=== PATIENT | female | born 1955 | race Caucasian/White ===

== ENCOUNTER 2020-05-04 10:56 | Outpatient (CLI) | payer OTHER | END 2020-05-04 10:57 | disposition home or self-care (01) | LOC: DI.S 10:56 | PROVIDERS: ATTEND Family Medicine | DX: Z53.9 Procedure and treatment not carried out, unspecified reason (principal) ==

== ENCOUNTER 2020-05-11 10:27 | Outpatient (CLI) | payer OTHER ==
--- NOTE | 2020-05-11 11:08 | XRAY Report ---
PROCEDURE: Foot 3 View BILAT INDICATIONS: FOOT PX LEG PX TECHNIQUE: 3 views of the foot were acquired. COMPARISON: X-ray ankle 05/11/2020, x-ray foot 07/03/2015 FINDINGS: Bones: No fractures or dislocations. No suspicious bony lesions. Minimal scattered IP degenerative change bilaterally. Soft tissues: No tibiotalar joint effusion. Achilles tendon appears normal. IMPRESSION: Minimal scattered IP degenerative changes bilaterally. No visualized acute fracture or dislocation. H owever, occult injury cannot be excluded. Recommend short interval imaging follow-up in 7-10 days as clinically indicated for additional evaluation. Reviewed by: Esha Tellez MD on 05/11/2020 11:07 AM PDT Approved by: Esha Tellez MD on 05/11/2020 11:07 AM PDT Station ID: [id number]
--- NOTE | 2020-05-11 11:09 | XRAY Report ---
PROCEDURE: Ankle 3 View BILAT INDICATIONS: FOT PX LEG PX TECHNIQUE: 3 views of the ankle were acquired. COMPARISON: X-ray foot 05/11/2020, 07/03/2015 FINDINGS: Bones: No fractures or dislocations. Ankle mortise is normally aligned. No suspicious bony lesions . Soft tissues: No tibiotalar joint effusion. Achilles tendon appears normal. IMPRESSION: No visualized acute fracture or dislocation. However, occult injury cannot be excluded. Recommend short interval imaging follow-up in 7-10 days as clinically indicated for additional evalua tion. Reviewed by: Esha Tellez MD on 05/11/2020 11:07 AM PDT Approved by: Esha Tellez MD on 05/11/2020 11:07 AM PDT Station ID: [id number]
== END 2020-05-11 10:28 | disposition home or self-care (01) ==
LOC: DI.S 10:27
PROVIDERS: ATTEND Family Medicine
DX: M19.072 Primary osteoarthritis, left ankle and foot (principal); M19.071 Primary osteoarthritis, right ankle and foot

== ENCOUNTER 2022-12-29 15:43 | Outpatient (CLI) | payer MEDICARE, OTHER ==
--- NOTE | 2022-12-30 10:46 | Mammography Report ---
BILATERAL DIGITAL SCREENING MAMMOGRAM 3D/2D WITH EXAGGERATED CC: 12/29/2022 CLINICAL: Baseline exam. Routine screening. No prior exams were available for comparison. There are scattered areas of fibroglandular density in both breasts (category b / 25%-50% glandular t issue). There is a cluster of oval focal asymmetries with an obscured margin in the right breast at 11 o'cloc k anterior depth. No other significant masses, calcifications, or other findings are seen in either breast. IMPRESSION: INCOMPLETE: NEEDS ADDITIONAL IMAGING EVALUATION The cluster of oval focal asymmetries in the right breast resembles clustered cysts and is indetermin ate. Additional views with possible ultrasound are recommended. Based on the Tyrer Cuzick model (a risk assessment model) the patients lifetime risk is 5.4% and her 10 year risk is 2.7%. According to the ACR, ACS, and NCCN guidelines, an annual breast MRI exam irina g with mammogram is recommended if the patients lifetime risk is 20% or greater. This exam was interpreted at Station ID: [id number]. NOTE: For mammograms, a report in lay terms will be sent to the patient. Approximately 15% of breast malignancies will not be visualized mammographically. In the management of a palpable breast mass, a negative mammogram must not discourage biopsy of a clinically suspicious lesion. Electronically Signed By: Niko gil/milvia:12/29/2022 12:08:49 ACR BI-RADS Category 0: Incomplete 3340F PARENCHYMAL PATTERN: (A) - The breast(s) demonstrate(s) scattered fibroglandular densities. BI-RADS CATEGORY: (0) - 0 Mammo and [place] [id number] Immediate follow-up LATERALITY: (R)
== END 2022-12-29 23:59 | disposition home or self-care (01) ==
LOC: DI.S 15:43
DX: Z12.31 Encounter for screening mammogram for malignant neoplasm of breast (principal); R92.8 Other abnormal and inconclusive findings on diagnostic imaging of breast

== ENCOUNTER 2023-01-19 10:49 | Outpatient (CLI) | payer MEDICARE, OTHER ==
--- NOTE | 2023-01-20 09:12 | Mammography Report ---
UNILATERAL RIGHT DIGITAL DIAGNOSTIC MAMMOGRAM 3D/2D WITH SPOT COMPRESSION: 01/19/2023 CLINICAL: Patient returns today to evaluate a focal asymmetry in the right breast. Comparison is made to exam dated: 12/29/2022 mammogram - [facility]. There are scattered areas of fibroglandular density in the right breast (category b / 25%-50% glandul ar tissue). There are multiple oval focal asymmetries with an obscured margin in the right breast superior latera l quadrant anterior depth. These are seen in additional views. These are less prominent. No other significant masses or calcifications are seen in the breast. IMPRESSION: INCOMPLETE: NEEDS ADDITIONAL IMAGING EVALUATION The multiple oval focal asymmetries in the right breast resemble clustered cysts or fibroglandular ti ssue and are indeterminate. An ultrasound is recommended. Based on the Tyrer Cuzick model (a risk assessment model) the patients lifetime risk is 5.4% and her 10 year risk is 2.7%. According to the ACR, ACS, and NCCN guidelines, an annual breast MRI exam irina g with mammogram is recommended if the patients lifetime risk is 20% or greater. This exam was interpreted at Station ID: [id number]. NOTE: For mammograms, a report in lay terms will be sent to the patient. Approximately 15% of breast malignancies will not be visualized mammographically. In the management of a palpable breast mass, a negative mammogram must not discourage biopsy of a clinically suspicious lesion. Electronically Signed By: Satish stanley/penrad:01/19/2023 12:49:20 ACR BI-RADS Category 0: Incomplete 3340F PARENCHYMAL PATTERN: (A) - The breast(s) demonstrate(s) scattered fibroglandular densities. BI-RADS CATEGORY: (0) - 0 Ultrasound [id number] Immediate follow-up LATERALITY: (R)
--- NOTE | 2023-01-20 09:12 | Ultrasound Report ---
LIMITED ULTRASOUND OF RIGHT BREAST: 01/19/2023 CLINICAL: Patient returns today to evaluate a focal asymmetry in the right breast. Comparison is made to exams dated: 01/19/2023 mammogram and 12/29/2022 mammogram - [facility]. Color flow ultrasound of the right breast 8-11 o'clock region was performed. Mckinley scale images of th e real-time examination were reviewed. There is a benign 0.4 cm x 0.6 cm x 0.3 cm oval cyst with a smooth internal wall in the right breast at 9 o'clock anterior depth 3 cm from the nipple. This oval cyst is anechoic with posterior acoustic enhancement. This correlates with mammography findings. IMPRESSION: BENIGN There is no sonographic evidence of malignancy. The 0.4 cm x 0.6 cm x 0.3 cm oval cyst in the right breast is consistent with a simple cyst and is be nign. No sonographic correlate is seen for additional asymmetries seen on mammography, consistent with norm al dense fibroglandular tissue. Return to annual mammogram screening schedule is recommended. This exam was interpreted at Station ID: [id number]. Electronically Signed By: Satish Stein M.D. ar/:01/19/2023 12:59:13 Ultrasound BI-RADS: 2 Benign BI-RADS CATEGORY: (2) - 2 Mammogram [id number] return to screening LATERALITY: (B)
== END 2023-01-19 10:50 | disposition home or self-care (01) ==
LOC: DI 10:49
PROVIDERS: ATTEND Nurse Practitioner Family
DX: N60.01 Solitary cyst of right breast (principal)

== ENCOUNTER 2023-08-11 14:31 | Outpatient (CLI) | payer MEDICARE, OTHER ==
--- NOTE | 2023-08-11 17:09 | XRAY Report ---
PROCEDURE: Lumbar Spine 2 View INDICATIONS: LEFT SIDE SCIATICA TECHNIQUE: 3 views of the lumbar spine were acquired. COMPARISON: None. FINDINGS: Bones: 5 [id number] vertebrae are present. There is trace anterolisthesis of L4 on L5. Moderat e to severe disc and foraminal narrowing are present at L5-S1 with scattered areas of mild to moderat e disc space narrowing throughout the remainder of the lumbar spine. Anterior osteophytes are present L1 and L2. No vertebral body compression fractures. No suspicious bony lesions. Soft tissues: Overlying bowel gas pattern is normal. No suspicious soft tissue calcifications. IMPRESSION: Degenerative changes most severe at L5-S1. Reviewed by: Esha Tellez MD on 08/11/2023 5:08 PM PDT Approved by: Esha Tellez MD on 08/11/2023 5:08 PM PDT Station ID: [id number]
--- NOTE | 2023-08-11 17:10 | XRAY Report ---
PROCEDURE: Hip w/Pelvis 2-3V LT INDICATIONS: LEFT SIDE SCIATICA TECHNIQUE: AP pelvis with lateral view(s) of the left hip(s). COMPARISON: None. FINDINGS: Bones: No fractures or dislocations. No suspicious bony lesions. Moderate to severe bilateral deg enerative hip joint space narrowing. No erosions. Soft tissues: No suspicious soft tissue calcifications or masses. IMPRESSION: Bilateral hip arthritic change. Reviewed by: Esha Tellez MD on 08/11/2023 5:08 PM PDT Approved by: Esha Tellez MD on 08/11/2023 5:08 PM PDT Station ID: [id number]
== END 2023-08-11 14:32 | disposition home or self-care (01) ==
LOC: DI.S 14:31
PROVIDERS: ATTEND Nurse Practitioner Family
DX: M54.32 Sciatica, left side (principal); M47.817 Spondylosis without myelopathy or radiculopathy, lumbosacral region; M16.0 Bilateral primary osteoarthritis of hip

== ENCOUNTER 2024-03-23 08:15 | Outpatient (CLI) | payer MEDICARE, OTHER | END 2024-03-23 21:53 | disposition critical access hospital (66) | LOC: EMS 08:15 | DX: I10 Essential (primary) hypertension (principal); R42 Dizziness and giddiness; R20.0 Anesthesia of skin | CPT/HCPCS: A0425; A0429 ==

== ENCOUNTER 2024-03-23 08:43 | Emergency (ER) | payer MEDICARE, OTHER ==
[2024-03-23] MEDS: MECLIZINE 12.5 MG TABLET PO STA (09:17)
[2024-03-23] MEDS: SODIUM CHLORIDE 0.9% 1,000 ML IV STA (09:17)
[2024-03-23 09:20] LABS: BASOPHILS # (AUTO) 0.1 10^3/uL (0.0-0.1); BASOPHILS % (AUTO) 0.6 %; EOSINOPHILS # (AUTO) 0.1 10^3/uL (0.0-0.7); EOSINOPHILS % (AUTO) 1.4 %; HGB - HEMOGLOBIN 13.8 g/dL (12.0-16.0); LYMPHOCYTES # (AUTO) 1.7 10^3/uL (1.5-3.5); LYMPHOCYTES % (AUTO) 19.8 %; MEAN CORPUSCULAR HEMOGLOBIN 29.6 pg (27.0-31.0); MEAN CORPUSCULAR HGB CONC 32.1 g/dL (32.0-36.0); MEAN CORPUSCULAR VOLUME 92.3 fL (81.0-99.0); MONOCYTES # (AUTO) 0.5 10^3/uL (0.0-1.0); MONOCYTES % (AUTO) 5.8 %; NEUTROPHILS # (AUTO) 6.3 10^3/uL (1.5-6.6); NEUTROPHILS % (AUTO) 72.2 %; PLT - PLATELET COUNT 276 10^3/uL (130-450); RED BLOOD COUNT 4.66 10^6/uL (4.20-5.40); RED CELL DISTRIBUTION WIDTH 12.5 % (12.0-15.0); WHITE BLOOD COUNT 8.7 x10^3/uL (4.8-10.8)
[2024-03-23 09:35] LABS: ALBUMIN 4.4 g/dL (3.2-5.5); ALBUMIN/GLOBULIN RATIO 1.4 (1.0-2.2); BILIRUBIN,TOTAL 0.4 mg/dL (0.2-1.0); CALCIUM 9.7 mg/dL (8.5-10.3); CREATININE 0.8 mg/dL (0.6-1.3); POTASSIUM 4.1 mmol/L (3.5-4.5); TOTAL PROTEIN 7.5 g/dL (6.4-8.9)
--- NOTE | 2024-03-23 09:42 | ED Physician Documentation ---
History of Present Illness - Stated complaint Stated Complaint: DIZZY/L SIDE NUMBNESS - Chief complaint Chief Complaint: Neuro - History obtained from History obtained from: Patient - Additonal information Additional information: The patient comes to the emergency department chief complaint of left-sided numbness and tingling and ataxia this morning that started around 730. Patient states she felt fine when she woke up and was preparing to go to her water aerobics class when she suddenly began to feel "dizzy". She states it did not really feel like a sense of movement, or a sense of lightheadedness, but rather that she was just having a hard time holding herself up. She states it seemed to be focused more on the left side. She also had tingling/numbness in her left face, arm, and leg. She called EMS and was still having a difficult time when they picked her up. However, she states that about senior living to the hospital, she began to feel better. The patient denies any actual loss of movement. The medics state they could not appreciate any deficits. They did get a blood pressure of 230 over upper 90s when they arrived to pick the patient up, however. The patient has a history of a diagnosis of hypertension but has been resistant to taking medication for it. She has been monitoring her blood pressures at home, which usually run in the 140s to 160s systolic. She states the last time she saw her primary provider, she was finally convinced that she needed to be on meds and now that this has happened, she states she is going to start taking blood pressure medication. The patient denies any recent illnesses. She was feeling perfectly fine when she woke up this morning. No visual changes. No difficulty speaking or swallowing. No facial droop. PD PAST MEDICAL HISTORY - Past Medical History Past Medical History: Yes Cardiovascular: Hypertension - Past Surgical History Past Surgical History: Yes Ortho: Knee replacement - Present Medications Home Medications: Ambulatory Orders Medication Instructions Recorded Confirmed Aspirin Chewable [[place] 81 mg PO DAILY #30 tablet 03/23/24 Aspirin] Metoprolol Tartrate [Lopressor] 50 mg PO BID #60 tablet 03/23/24 - Allergies Allergies/Adverse Reactions: Allergies Allergy/AdvReac Type Severity Reaction Status Date / Time No Known Drug Allergies Allergy Verified 03/23/24 08:57 - Social History Does the pt smoke?: No Smoking Status: Never smoker Does the pt drink ETOH?: No Does the pt have substance abuse?: No PD ED PE NORMAL - Vitals Vital signs reviewed: Yes - General General: Alert and oriented X 3, No acute distress, Well developed/nourished - HEENT HEENT: Atraumatic, PERRL, EOMI, Moist mucous membranes - Neck Neck: Supple, no meningeal sign - Cardiac Cardiac: RRR, No murmur - Respiratory Respiratory: No respiratory distress, Clear bilaterally - Abdomen Abdomen: Soft, Non tender, Non distended - Derm Derm: Normal color, Warm and dry, No rash - Extremities Extremities: No deformity, No edema - Neuro Neuro: Alert and oriented X 3, 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 Patient states sensation is equal on exam but the left side just feels "funny".) - Psych Psych: Normal mood, Normal affect Results - Vitals Vitals: Oxygen O2 Source Room air - EKG (time done) 0902 EKG releavant findings:: EKG personally interpreted by author of this note. Relevant findings are: Rate: Rate (enter#) (94) Rhythm: NSR [place]: Normal Intervals: Normal NM QRS: LVH Ischemia: Normal ST segments Compare to prior EKG: Old EKG unavailable Computer interpretation: Agree with computer - Labs Labs: Laboratory Tests 03/23/24 03/23/24 09:14 09:14 WBC 8.7 RBC 4.66 Hgb 13.8 Hct 43.0 MCV 92.3 MCH 29.6 MCHC 32.1 RDW 12.5 Plt Count 276 MPV 9.0 Neut # (Auto) 6.3 Lymph # (Auto) 1.7 [place] # (Auto) 0.5 Eos # (Auto) 0.1 Baso # (Auto) 0.1 Absolute Nucleated RBC 0.00 Nucleated RBC % 0.0 Sodium 139 Potassium 4.1 Chloride 104 Carbon Dioxide 28 Anion Gap 7.0 BUN 20 Creatinine 0.8 Estimated GFR (MDRD) 72 L Glucose 94 Calcium 9.7 Total Bilirubin 0.4 AST 15 ALT 17 Alkaline Phosphatase 69 Total Protein 7.5 Albumin 4.4 Globulin 3.1 Albumin/Globulin Ratio 1.4 Lipase 15 - Rads (name of study) CT head Relevant Findings:: Final report received, See rad report (Negative) CTA head and neck Relevant Findings:: Final report received, See rad report (Negative) MRI brain Relevant Findings:: Final report received, See rad report (Negative) PD Medical Decision Making - ED course Complexity details: reviewed results, re-evaluated patient, considered differential, d/w patient, d/w family ED course: The patient was worked up with laboratory studies and EKG both of which were unremarkable. She was sent for CT of the head without contrast as well as CT angios of the head and neck, both of which were unremarkable. The patient was then sent for a noncontrast MRI of the brain which was also negative. At this point the patient has ambulated to the bathroom numerous times during her stay here and denied any dizziness, lightheadedness, or any other neurologic symptoms patient stable for discharge home. I have advised her to follow-up with her primary care physicianWith his dementia. We have discussed the usual indications for return. Departure - Departure Disposition: 01 Home, Self Care Clinical Impression: Paresthesia, Uncontrolled hypertension Condition: Stable Instructions: ED Hypertension Conf Out Of Control, ED Paraesthesias Prescriptions: Metoprolol Tartrate [Lopressor] 50 mg PO BID #60 tablet Aspirin Chewable [St [place] Aspirin] 81 mg PO DAILY #30 tablet Comments: Your CT scans and MRI showed no evidence of stroke which is great news. Your blood pressures have been persistently high and unfortunately, this does put you at high risk for arterial disease and a stroke in the future. We have treated you with blood pressure medicine here in the ER today and I suspect that your very high blood pressure this morning was what set off your symptoms. As such, it is important that you start blood pressure medicine while you are waiting to see your primary. I have sent a prescription for this and a daily aspirin to the [facility] in [place]. Please pick this up and start your medicine tomorrow. Please call to make the next available appointment with your primary care provider to determine a good long-term plan for your blood pressure. If you develop more severe strokelike symptoms, please return to the emergency department immediately. Forms: PCP List Discharge Date/Time: 03/23/24 13:22
[2024-03-23] MEDS ORDERED: iohexoL-300 100 ML VIAL ONE (10:01)
--- NOTE | 2024-03-23 10:54 | CT Report ---
PROCEDURE: Head WO INDICATIONS: L side numb/tingling, ataxia TECHNIQUE: Noncontrast 4.5 mm thick angled axial sections acquired from the foramen magnum to the vertex. For r adiation dose reduction, the following was used: automated exposure control, adjustment of mA and/or kV according to patient size. COMPARISON: None. FINDINGS: Image quality: Excellent. CSF spaces: Basal cisterns are patent. No extra-axial fluid collections. Ventricles are normal in size and shape. Brain: No midline shift. No intracranial masses or hemorrhage. Mckinley-white matter interface is norm al. Skull and face: Calvarium and visualized facial bones are intact, without suspicious lesions. Sinuses: Visualized sinuses and mastoids are clear. IMPRESSION: No acute intracranial pathology. Reviewed by: Obdulio Gill MD on 03/23/2024 10:53 AM PDT Approved by: Obdulio Gill MD on 03/23/2024 10:53 AM PDT Station ID: [id number]
--- NOTE | 2024-03-23 10:59 | CT Report ---
PROCEDURE: Angio Head/Neck INDICATIONS: L side numb/tingling, ataxia TECHNIQUE: After the administration of intravenous contrast, 1 mm thick sections acquired from the aortic arch t hrough the [place]. 3-dimensional dwkbgdn-cqqidjfqy-ikdgabmjqi (MIP) and/or volume renderin g reformats were acquired of the central intracranial vasculature and neck separately. For radiation dose reduction, the following was used: automated exposure control, adjustment of mA and/or kV acco rding to patient size. CONTRAST: Omni 300 80ml COMPARISON: CT head from the same date. FINDINGS: Image quality: Diagnostic. HEAD CT: CSF Spaces: Basal cisterns are patent. No extra-axial fluid collections. Ventricles are normal in size and shape. Brain: No significant abnormality is seen for scanning technique. Skull and face: Calvarium and visualized facial bones appear intact, without suspicious lesions. Sinuses: Visualized sinuses and mastoids are clear. HEAD CT ANGIOGRAPHY: Anterior circulation: Bilateral cavernous carotid diffuse atherosclerotic calcifications with moderat e left cavernous carotid stenotic disease and mild right cavernous carotid stenotic disease. The flow within the paired anterior cerebral arteries is normal and symmetric. The flow within the middle ce rebral arteries is normal and symmetric. The anterior communicating artery is seen. No aneurysms ar e seen. Posterior circulation: Visualized portions of the vertebral arteries demonstrate normal caliber, and join to form a normal appearing basilar artery. Flow within the posterior cerebral arteries is norm al and symmetric. No aneurysms are seen. NECK CT ANGIOGRAPHY: Carotid system: The great vessels demonstrate a conventional anatomy as they arise from the aortic a rch. The origins of the common carotid arteries appear patent. The common carotid arteries demonstr ate normal caliber and courses. The bifurcation regions are both widely patent. Mild, less than 50% proximal left internal carotid artery stenosis. No right carotid stenosis identified. Posterior circu lation: The origins of the vertebral arteries both appear widely patent. The more superior extracra nial portions of both vertebral arteries also demonstrate normal courses and calibers. They join to form a normal appearing basilar artery. Soft tissues: Visualized neck soft tissues demonstrate no suspicious abnormalities. Bones: No suspicious bony lesions. Visualized cervical spine appears normally aligned. IMPRESSION: 1. 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 Otherwis e unremarkable CTA head. No focal filling defects. No aneurysms. No vascular cutoffs. 2. Mild, less than 50% proximal left internal carotid artery stenosis The estimate of stenosis included in the report of the imaging study was calculated using the NASCET method Reviewed by: Obdulio Gill MD on 03/23/2024 10:57 AM PDT Approved by: Obdulio Gill MD on 03/23/2024 10:57 AM PDT Station ID: [id number]
[2024-03-23] MEDS: iohexoL-300 100 ML VIAL IVP ONE (12:19)
[2024-03-23] MEDS: METOPROLOL TARTRATE 50 MG TABLET PO STA (12:40)
--- NOTE | 2024-03-23 12:45 | MRI Report ---
PROCEDURE: Brain WO INDICATIONS: numb L side, truncal ataxia this morning TECHNIQUE: Noncontrast axial T1 spin echo, axial T2 fast spin echo, sagittal and axial FLAIR, coronal T2 fast sp in echo, axial gradient echo, axial diffusion and ADC through the brain. COMPARISON: CT head, CTA head 03/23/2024 FINDINGS: Image quality: Excellent. CSF Spaces: Basal cisterns are patent. No extra-axial fluid collections. Ventricles are normal in size and shape. Brain: No intracranial masses or hemorrhage. Mckinley/white matter interface is normal. Brainstem appe ars normal. Diffusion-weighted images demonstrate no acute ischemic insult. No chronic ischemic ins ults. Normal intravascular flow voids are present. Skull and face: Calvarium has normal marrow signal. Orbits appear normal. Sinuses: Sinuses are clear. Minimal bilateral mastoid air cell fluid. IMPRESSION: 1. No acute intracranial process. No acute ischemia. Reviewed by: Esha Tellez MD on 03/23/2024 12:44 PM PDT Approved by: Esha Tellez MD on 03/23/2024 12:44 PM PDT Station ID: [id number]
[2024-03-23 12:48] VITALS: BP 168/84
[2024-03-23] MEDS: lisinopriL 20 MG TABLET PO STA (12:55)
[2024-03-23 13:09] VITALS: O2SAT 98
== END 2024-03-23 13:22 | disposition home or self-care (01) ==
LOC: EDUNIT# → ED 08:43
DX: R20.2 Paresthesia of skin (principal); I10 Essential (primary) hypertension; Z79.82 Long term (current) use of aspirin; Z79.899 Other long term (current) drug therapy
CPT/HCPCS: 36415; 70450; 70496; 70498; 70551; 80053; 83690; 85025; 93005; 99284; A9270; Q9967

== ENCOUNTER 2024-07-21 14:59 | Outpatient (CLI) | payer MEDICARE, OTHER ==
--- NOTE | 2024-07-21 15:32 | XRAY Report ---
PROCEDURE: Chest 2V INDICATIONS: ASTHMA TECHNIQUE: 2 views of the chest were acquired. COMPARISON: None. FINDINGS: Surgical changes and devices: None. Lungs and pleura: No dense consolidation or pleural effusion Mediastinum: Normal heart size Bones and chest wall: Degenerative changes IMPRESSION: No acute radiographic abnormality. Reviewed by: David Lomeli MD on 07/21/2024 3:31 PM PDT Approved by: David Lomeli MD on 07/21/2024 3:31 PM PDT Station ID: [id number]
== END 2024-07-21 15:00 | disposition home or self-care (01) ==
LOC: DI.S 14:59
DX: J45.909 Unspecified asthma, uncomplicated (principal)

== ENCOUNTER 2024-12-21 09:52 | Inpatient (IN) ==
[2024-12-21 10:39] LABS: BASOPHILS # (AUTO) 0.1 10^3/uL (0.0-0.1); BASOPHILS % (AUTO) 0.4 %; EOSINOPHILS # (AUTO) 0.1 10^3/uL (0.0-0.7); EOSINOPHILS % (AUTO) 0.5 %; HCT - HEMATOCRIT 44.5 % (37.0-47.0); HGB - HEMOGLOBIN 14.4 g/dL (12.0-16.0); LYMPHOCYTES # (AUTO) 1.6 10^3/uL (1.5-3.5); LYMPHOCYTES % (AUTO) 8.8 %; MEAN CORPUSCULAR HEMOGLOBIN 29.3 pg (27.0-31.0); MEAN CORPUSCULAR HGB CONC 32.4 g/dL (32.0-36.0); MEAN CORPUSCULAR VOLUME 90.6 fL (81.0-99.0); MEAN PLATELET VOLUME 8.3 fL (7.9-10.8); MONOCYTES # (AUTO) 0.9 10^3/uL (0.0-1.0); MONOCYTES % (AUTO) 5.1 %; NEUTROPHILS # (AUTO) 15.5 10^3/uL (1.5-6.6); NEUTROPHILS % (AUTO) 83.5 %; PLT - PLATELET COUNT 545 10^3/uL (130-450); RED BLOOD COUNT 4.91 10^6/uL (4.20-5.40); RED CELL DISTRIBUTION WIDTH 13.5 % (12.0-15.0); WHITE BLOOD COUNT 18.6 x10^3/uL (4.8-10.8)
[2024-12-21 10:56] LABS: ALBUMIN/GLOBULIN RATIO 1.1 (1.0-2.2); ALKALINE PHOSPHATASE 78 IU/L (42-121); ALT ALANINE AMINOTRANSFERASE 12 IU/L (10-60); AST ASPARTATE AMINOTRANSFERASE 9 IU/L (10-42); BILIRUBIN,TOTAL 0.4 mg/dL (0.2-1.0); BUN - BLOOD UREA NITROGEN 21 mg/dL (6-20); CALCIUM 10.1 mg/dL (8.5-10.3); CARBON DIOXIDE - CO2 29 mmol/L (21-32); CHLORIDE 96 mmol/L (101-111); CREATININE 1.7 mg/dL (0.6-1.3); GFR - MDRD 30 (>89); GLUCOSE 139 mg/dL (74-104); POTASSIUM 3.6 mmol/L (3.5-4.5); SODIUM 137 mmol/L (135-145); TOTAL PROTEIN 7.8 g/dL (6.4-8.9)
[2024-12-21 11:01] LABS: LIPASE < 10 U/L (11-82)
--- NOTE | 2024-12-21 11:29 | ED Physician Documentation ---
History of Present Illness Stated complaint Stated Complaint: NAUSEA Chief complaint Chief Complaint: Abd Pain History obtained from History obtained from: Patient History of Present Illness Timing: Prior to arrival Additonal information Additional information: Patient is a 69-year-old female presenting to the emergency department with symptoms of lower abdominal pain going on x 1 week. Patient has history of diverticulosis. When she developed some left lower abdominal pain and diarrhea she assumed her symptoms were secondary to diverticulitis. She saw her PCP on Wednesday who instructed her to follow a clear liquid diet. On patient was started on Augmentin. She took 2 doses of the medication but was unable to keep it down for repetitive nausea and vomiting that started yesterday. She denies any blood in her emesis or in her stool. She has no fevers or chills. She has decreased urination secondary to unable to eat or drink. No history of abdominal surgeries. She has persistent pain to her left lower abdomen. No history of diverticulitis. Meds/Allgy Home Medications Ambulatory Orders Medication Instructions Recorded Confirmed aspirin 81 mg chewable tablet 81 mg PO DAILY #30 tabs 03/23/24 11/02/24 losartan 25 mg tablet 25 mg PO QDAY 10/16/24 11/02/24 metoprolol tartrate 50 mg tablet 50 mg PO QDAY 10/16/24 11/02/24 diclofenac sodium 50 mg 50 mg PO TID PRN pain #30 tabs 11/02/24 11/02/24 tablet,delayed release trazodone 100 mg tablet 50 - 100 mg PO .qhs 11/02/24 11/02/24 Allergies Allergies Allergy/AdvReac Type Severity Reaction Status Date / Time No Known Drug Allergies Allergy Verified 10/16/24 07:40 [facility] Medical History Medical History HTN (hypertension) Osteoarthritis of left knee Social History Social History (Updated 12/21/24 @ 15:12 by Khadra Iglesias MD) Smoking Status: Never smoker Living Condition: With spouse/s.o. Support Person: Yes Relationship: Spouse Level: Independent Do you feel safe in your home environment?: Yes Suffered physical, verbal, emotional, or financial abuse?: No History of Abuse: No Occupation: science teacher, [employer] cook Retired: Yes POLST Patient has POLST: No Exam Constitutional normal general appearance HENMT normocephalic and head/scalp atraumatic Eyes PERRL and EOMs intact bilaterally Neck/C-Spine visual inspection normal Lymph no lymphadenopathy noted Chest inspection of chest normal Respiratory breath sounds equal bilaterally Cardiovascular TAchycardic on arrival Extremities normal to inspection Skin skin color normal, no rash and no lesions Results Vitals Vitals: Vital Signs - 24 hr 12/21/24 10:02 12/21/24 10:34 12/21/24 11:04 Temperature 36.1 C L Temperature Source Temporal Artery Scan Pulse Rate 130 H 109 H 110 H Respiratory Rate 20 18 18 Blood Pressure 181/72 H 156/69 H 154/68 H O2 Saturation 97 95 99 O2 Source Room air Room air Room air If not protocol: Oxygen Flow, liters/minute Pain Intensity 0 1 12/21/24 11:30 12/21/24 12:06 12/21/24 12:37 Temperature Temperature Source Pulse Rate 106 H 103 H 116 H Respiratory Rate 18 19 16 Blood Pressure 152/76 H 156/65 H 161/78 H O2 Saturation 97 95 97 O2 Source Room air Room air Room air If not protocol: Oxygen Flow, liters/minute Pain Intensity 12/21/24 13:46 12/21/24 14:46 12/21/24 15:10 Temperature Temperature Source Pulse Rate 100 102 H Respiratory Rate 13 18 Blood Pressure 166/75 H 145/111 H O2 Saturation 98 97 95 O2 Source Room air Room air If not protocol: Oxygen Flow, liters/minute Pain Intensity 12/21/24 16:15 Temperature Temperature Source Pulse Rate 101 H Respiratory Rate 18 Blood Pressure 182/65 H O2 Saturation 99 O2 Source Nasal cannula If not protocol: Oxygen Flow, liters/minute 2 Pain Intensity Oxygen O2 Source Nasal cannula Labs Labs: Laboratory Tests 12/21/24 12/21/24 10:25 13:38 WBC 18.6 H RBC 4.91 Hgb 14.4 Hct 44.5 MCV 90.6 MCH 29.3 MCHC 32.4 RDW 13.5 Plt Count 545 H MPV 8.3 Neut # (Auto) 15.5 H Lymph # (Auto) 1.6 [place] # (Auto) 0.9 Eos # (Auto) 0.1 Baso # (Auto) 0.1 Absolute Nucleated RBC 0.00 Nucleated RBC % 0.0 Sodium 137 Potassium 3.6 Chloride 96 L Carbon Dioxide 29 Anion Gap 12.0 BUN 21 H Creatinine 1.7 H Estimated GFR (MDRD) 30 L Glucose 139 H Calcium 10.1 Total Bilirubin 0.4 AST 9 L ALT 12 Alkaline Phosphatase 78 Total Protein 7.8 Albumin 4.0 Globulin 3.8 Albumin/Globulin Ratio 1.1 Lipase < 10 L Urine Color YELLOW Urine Clarity CLEAR Urine pH 6.0 Ur Specific [place] 1.010 Urine Protein NEGATIVE Urine Glucose (UA) NEGATIVE Urine Ketones TRACE Urine Occult Blood NEGATIVE Urine Nitrite NEGATIVE Urine Bilirubin NEGATIVE Urine Urobilinogen 0.2 (NORMAL) Ur Leukocyte Esterase NEGATIVE Ur Microscopic Review NOT INDICATED Urine Culture Comments NOT INDICATED PD Medical Decision Making ED course Complexity details: reviewed old records and reviewed results ED course: Patient is a 69-year-old female presenting to the emergency department with lower abdominal pain symptoms have been going on for about 1 week she has had diarrhea and developed nausea and vomiting yesterday. She took 2 doses of Augmentin but was unable to keep them down yesterday. No fevers persistent lower abdominal pain with persistent nausea here today. Vitals on arrival are significant for tachycardic on arrival. Patient has significant leukocytosis of 18 on arrival. Patient has significant JAY secondary to prerenal azotemia given recent nausea and vomiting causing dehydration. Patient started on IV fluids Zofran metronidazole and ciprofloxacin here in the ED for treatment. 1400: Discussed case with Dr. Iglesias who reviewed images and feels safe to admit her. She will continue with ice chips and other gunderson NPO with IV fluids in the hospital. Discharge Plan Discharge Patient Disposition: 67 [facility] DC/Xfer Condition: Stable Clinical Impression: Partial obstruction of small intestine, Abdominal pain, Vomiting, Diarrhea Prescriptions: No Action aspirin 81 MG tablet,chewable 81 mg PO DAILY Qty: 30 0RF losartan 25 mg tablet 25 mg PO QDAY metoprolol tartrate 50 mg tablet 50 mg PO QDAY trazodone 100 mg tablet 50 - 100 mg PO .qhs Patient Comments: take 1/2 to 1 tablet by mouth once daily diclofenac sodium 50 mg tablet,delayed release (DR/EC) 50 mg PO TID PRN (Reason: pain) Qty: 30 0RF Print Language: [place]
[2024-12-21] MEDS: ONDANSETRON 4 MG/2 ML VIAL IVP STA ×2 (11:41→14:41)
[2024-12-21] MEDS: SODIUM CHLORIDE 0.9% 1,000 ML IV STA ×2 (11:41→14:42)
[2024-12-21] MEDS: CIPROFLOXACIN 400 MG/200 ML 400 MG/200 ML BAG IV STA (11:43)
[2024-12-21] MEDS ORDERED: iohexoL-300 100 ML VIAL ONE (12:06)
--- NOTE | 2024-12-21 13:15 | CT Report ---
PROCEDURE: CT Abdomen/Pelvis W INDICATIONS: left lower abdominal pain, concern for diverticuli CONTRAST: Omni 300 100ml TECHNIQUE: After the administration of intravenous contrast, a CT scan of the abdomen and pelvis was performed. Images were recorded and evaluated at appropriate window settings. Reformats: coronal and sagittal. F or radiation dose reduction, the following was used: automated exposure control, adjustment of mA and /or kV according to patient size. COMPARISON: None. FINDINGS: Image quality: Diagnostic. Lower chest: Unremarkable. Liver: No solid mass. Gallbladder: Unremarkable. Biliary tree: No intrahepatic or extrahepatic dilation, accounting for age. Spleen: No splenomegaly. Pancreas: No pancreatic ductal dilation. Adrenals: No adrenal nodule. Kidneys and ureters: No hydronephrosis. No renal cystic lesion which requires follow up. No solid mas s. Stomach, bowel and peritoneum: Dilated fluid-filled loops of small bowel measuring 4.3 cm. Transition point with inflammatory change is present in the left of midline lower pelvis seen on series 2 image s 97 through 102. There is adjacent inflammatory change of the left colon with diverticula. No absces s. No pathologic free fluid. Lymph nodes: No central or retroperitoneal adenopathy. Vessels: No infrarenal aortic aneurysm. Patent portal vein. PELVIS Reproductive organs: Unremarkable. Bladder: No abnormal wall thickening, accounting for underdistention. Pelvic lymph nodes: No pelvic adenopathy by size criteria. Bones: No aggressive osseous abnormality. Other: No significant ventral or inguinal hernia. IMPRESSION: Partial small bowel obstruction as described above. This may be secondary to inflammatory change prod uced from left colonic colitis. However, inflammation secondary to transition point of small bowel ob struction with secondary colonic inflammation is suspected. Reviewed by: Esha Tellez MD on 12/21/2024 1:13 PM PST Approved by: Esha Tellez MD on 12/21/2024 1:13 PM PST Station ID: [id number]
[2024-12-21] MEDS: iohexoL-300 100 ML VIAL IVP ONE (13:22)
[2024-12-21] MEDS: metroNIDAZOLE 500 MG/100 ML 500 MG/100 ML BAG IV ONE (13:42)
[2024-12-21 13:55] LABS: BILIRUBIN,URINE NEGATIVE (NEGATIVE); GLUCOSE, URINE (UA) NEGATIVE (NEGATIVE); KETONES,URINE (UA) TRACE mg/dL (NEGATIVE); LEUKOCYTE ESTERASE, URINE NEGATIVE (NEGATIVE); NITRITE,URINE NEGATIVE (NEGATIVE); OCCULT BLOOD,URINE NEGATIVE (NEGATIVE); PROTEIN,URINE NEGATIVE (NEGATIVE); UROBILINOGEN,URINE 0.2 (NORMAL) E.U./dL (NORMAL)
[2024-12-21 13:58] LABS: CLARITY,URINE CLEAR (CLEAR)
[2024-12-21] MEDS ORDERED: HYDROmorphone 0.5 MG/0.5 ML SYRINGE IVP PRN (14:34)
[2024-12-21] MEDS ORDERED: CIPROFLOXACIN 400 MG/200 ML 400 MG/200 ML BAG IV SCH (15:00)
--- NOTE | 2024-12-21 15:10 | PREOP HISTORY & PHYSICAL ---
Surgical History & Physical Chief Complaint/HPI Chief Complaint: abdominal pain History of Present Illness: This is a 69-year-old female who reports acute onset of left lower quadrant abdominal pain approximately 1 week ago. She has had some right lower quadrant pain as well but definitely more on the left. She describes the pain as sharp in nature. It is worse with palpation and movement. Her pain has increased over the last several days and has been associated with nausea and vomiting for the last 3 days. She has not been able to keep anything significant down, even liquids. She endorses chills over the last 3 days. She had 1 or 2 loose stools in the last week. She denies any blood in her stool. She denies any history of similar symptoms in the past. Her last colonoscopy was greater than 10 years ago and she does know that she has a history of diverticulosis. All Active Problems (Updated 12/21/24 @ 14:36 by Khadra Iglesias MD) JAY (acute kidney injury) (Acute) Small bowel obstruction (Acute) Diverticulitis large intestine (Acute) Diarrhea (Acute) Vomiting (Acute) Abdominal pain (Acute) Partial obstruction of small intestine (Acute) Knee pain (Acute) Osteoarthritis of left knee (Acute) HTN (hypertension) (Acute) Body mass index (BMI) of 31.0-31.9 in adult (Acute) Home Meds and Allergies Active Medications Generic Name Dose Route Start Last Admin Trade Name Freq PRN Reason Stop Dose Admin Hydromorphone HCl 0.5 mg 12/21/24 14:34 Hydromorphone 0.5 Mg/0.5 Ml Syringe IVP Q2H PRN Pain 8 to 10 Lactated Ringer's 1,000 mls @ 150 mls/hr 12/21/24 15:00 Lr IV .[id number] OLI Acetaminophen 1,000 mg in 100 mls @ 400 mls/hr 12/21/24 18:00 Acetaminophen IV Q6HR OLI Metronidazole 500 mg in 100 mls @ 100 mls/hr 12/21/24 21:00 Flagyl 500 Mg/100 Ml IV Q8H OLI Ciprofloxacin 400 mg in 200 mls @ 200 mls/hr 12/22/24 00:00 Cipro 400 Mg/200 Ml IV Q12H OLI Metoprolol Tartrate 5 mg 12/21/24 14:42 Metoprolol 5 Mg/5 Ml Vial IVP Q6H PRN Tachycardia Ondansetron HCl 4 mg 12/21/24 14:34 Ondansetron Odt 4 Mg Tablet TL Q6HR PRN Nausea / Vomiting Ondansetron HCl 4 mg 12/21/24 14:34 Ondansetron 4 Mg/2 Ml Vial IVP Q6HR PRN Nausea / Vomiting Prochlorperazine Edisylate 10 mg 12/21/24 14:34 Prochlorperazine 10 Mg/2 Ml Vial IVP Q6HR PRN Nausea / Vomiting Sodium Chloride 10 ml 12/21/24 14:34 Sodium Chloride Flush 0.9% 10 Ml Syringe IVP PRN PRN NEEDED PER PROVIDER ORDERS Sodium Chloride 10 ml 12/21/24 17:00 Sodium Chloride Flush 0.9% 10 Ml Syringe IVP 0100,0900,1700 [facility] aspirin 81 mg chewable tablet 81 mg PO DAILY #30 tabs 03/23/24 losartan 25 mg tablet 25 mg PO QDAY 10/16/24 metoprolol tartrate 50 mg tablet 50 mg PO QDAY 10/16/24 diclofenac sodium 50 mg tablet,delayed release 50 mg PO TID PRN pain #30 tabs 11/02/24 trazodone 100 mg tablet 50 - 100 mg PO .qhs 11/02/24 Allergies Allergy/AdvReac Type Severity Reaction Status Date / Time No Known Drug Allergies Allergy Verified 10/16/24 07:40 Vital Signs O2 Saturation: 95 Patient Review Patient Review Pertinent Tests Reviewed [facility] Medical History Medical History HTN (hypertension) Osteoarthritis of left knee Social History Social History (Updated 12/21/24 @ 15:12 by Khadra Iglesias MD) Smoking Status: Never smoker Living Condition: With spouse/s.o. 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, [employer] cook Retired: Yes POLST Patient has POLST: No Exam Exam GEN: No acute distress, appears stated age, alert and oriented HEENT: NCAT, dry mucous membrandes, EOMI NEURO: CN II-XII grossly intact, no obvious focal deficits CV: RRR at the time of my exam PULM: non labored, on RA ABD: soft, mild distension (somewhat difficult to assess due to body habitus), moderate LLQ ttp, mild RLQ ttp, otherwise non tender, no rebound or guarding CIRCULATORY: no clubbing, cyanosis, but trace B LE edema SKIN: no lesions appreciated LYMPH: no obvious lymphadenopathy MSK: 4/4 strength in all extremities PSYCH: Affect is appropriate Image I personally interpreted the images and reviewed the report from the patient's CT scan. She has marked inflammation about the sigmoid colon consistent with diverticulitis. There is no significant free air or free fluid. There is either a abscess or large loop of bowel adjacent to the inflammation in the colon and her small bowel proximal to this area is dilated. Her stomach itself is not very distended at this time. I also discussed the findings on the CT scan with the radiologist who recommends repeat CT in 2 to 3 days with p.o. contrast if the patient is able to tolerate it to better assess the fluid noted in the left lower quadrant for abscess versus bowel loop Review of Systems Status of ROS: 10 or more systems reviewed and unremarkable except as noted in history and below Assessment & Plan Assessment & Plan Assessment & Plan: This is a 69 y/o F with: 1. diverticulitis - Acute diverticulitis complicated by inability to tolerate p.o. secondary to at least a partial small bowel obstruction. The patient will be admitted under observation at this time. She has been started on IV fluid resuscitation, as needed pain and nausea medication, and IV antibiotics I am hopeful her symptoms will improve with conservative management. To this point, the patient has not received any significant antibiotic treatment for diverticulitis because she has had significant nausea and vomiting since before she started taking her oral Augmentin. As discussed above, plan to consider repeat CT in 2 to 3 days possibly with oral contrast to better delineate for possible abscess. 2. JAY Patient has been given 2 L of IV fluid in the emergency department. I ordered for LR to run at 150 mL an hour Repeat labs ordered for tomorrow morning Strict I's and O's 3. Small bowel obstruction, at least partial Patient has dilated small bowel loops throughout The patient has not vomited since presentation I discussed options including observation and n.p.o. versus NG tube placement at this time. The patient would not like to have an NG tube unless she absolutely has to. I discussed that if she continues to vomit despite nausea medication the NG tube will probably make her much more comfortable and she would be willing to reconsider if she is vomiting -NPO with sips and chips. Plan to adat when bowel function improves. 4. Hypertension The patient's not been able to tolerate her home medications for the last several days I have held her home p.o. meds as she is not able to tolerate p.o. at this time. I have also ordered as needed IV metoprolol for hypertension and tachy cardia Prophylaxis: The patient's been started on DVT prophylaxis with SCDs Plan to admit her to the surgical team on the [facility] floor under observation status at this time.
[2024-12-21] MEDS: LACTATED RINGERS 1,000 ML IV SCH (15:35)
[2024-12-21] MEDS: PROCHLORPERAZINE 10 MG/2 ML VIAL IVP PRN (16:11)
[2024-12-21] MEDS: SODIUM CHLORIDE FLUSH 0.9% 10 ML SYRINGE IVP SCH (18:55)
[2024-12-21] MEDS: ACETAMINOPHEN 1,000 MG/100 ML 1,000 MG/100 ML BAG IV SCH (18:55)
[2024-12-21] MEDS: metroNIDAZOLE 500 MG/100 ML 500 MG/100 ML BAG IV SCH (21:32)
[2024-12-21] MEDS: CIPROFLOXACIN 400 MG/200 ML 400 MG/200 ML BAG IV SCH (23:53)
[2024-12-22 06:07] LABS: BASOPHILS # (AUTO) 0.1 10^3/uL (0.0-0.1); BASOPHILS % (AUTO) 0.4 %; EOSINOPHILS # (AUTO) 0.3 10^3/uL (0.0-0.7); EOSINOPHILS % (AUTO) 2.2 %; HCT - HEMATOCRIT 36.2 % (37.0-47.0); HGB - HEMOGLOBIN 11.7 g/dL (12.0-16.0); LYMPHOCYTES # (AUTO) 1.8 10^3/uL (1.5-3.5); MEAN CORPUSCULAR HEMOGLOBIN 29.7 pg (27.0-31.0); MEAN CORPUSCULAR HGB CONC 32.3 g/dL (32.0-36.0); MEAN CORPUSCULAR VOLUME 91.9 fL (81.0-99.0); MEAN PLATELET VOLUME 8.5 fL (7.9-10.8); MONOCYTES % (AUTO) 6.7 %; NEUTROPHILS # (AUTO) 10.8 10^3/uL (1.5-6.6); NEUTROPHILS % (AUTO) 76.4 %; PLT - PLATELET COUNT 411 10^3/uL (130-450); RED BLOOD COUNT 3.94 10^6/uL (4.20-5.40); RED CELL DISTRIBUTION WIDTH 13.2 % (12.0-15.0); WHITE BLOOD COUNT 14.1 x10^3/uL (4.8-10.8)
[2024-12-22 06:25] LABS: CALCIUM 8.6 mg/dL (8.5-10.3); CREATININE 1.1 mg/dL (0.6-1.3); POTASSIUM 3.5 mmol/L (3.5-4.5)
--- NOTE | 2024-12-22 11:39 | PHARMACY PROGRESS NOTE ---
Best Possible Medication History Admit Date and Time: 12/21/24 1434 Home Medications Medication Instructions Recorded Confirmed Type losartan 25 mg tablet 25 mg PO QDAY 10/16/24 12/22/24 History metoprolol tartrate 50 mg tablet 50 mg PO QDAY 10/16/24 12/22/24 History budesonide-formoterol HFA 160 1 inh inhalation DAILY PRN ASTHMA 12/22/24 12/22/24 History mcg-4.5 mcg/actuation aerosol FLARES inhaler (Symbicort) trazodone 50 mg tablet 50 - 100 mg PO QPM 12/22/24 12/22/24 History Processed by: Pharmacy Medications reviewed in ED?: No Medication History completed: Yes Patient Interview: Completed Secondary Source(s): Prescription bottles and Spouse/Significant other [facility] Statement: As the person ultimately responsible for medication therapy, providers are able to order a medication from an existing home medication list in [facility] via the "Reconcile Routine" prior to Confirmation of that medication by field support representative. Such practice is discouraged except when the physician, in their clinical judgment, deems that a medical need exists for a medication without regard to previous use.
[2024-12-22] MEDS: ONDANSETRON ODT 4 MG TABLET TL PRN (14:30)
[2024-12-22] MEDS: METOPROLOL 5 MG/5 ML VIAL IVP PRN (14:47)
--- NOTE | 2024-12-22 15:16 | PROVIDER PROGRESS NOTE ---
Subjective Subjective Pt reports feeling: Improved Subjective: no significant pain and passing some gas and liquid stool. no nausea Current Medications Current Medications Current Medications: Current Medications Generic Name Dose Route Start Last Admin Trade Name Freq PRN Reason Stop Dose Admin Hydromorphone HCl 0.5 mg 12/21/24 14:34 Hydromorphone 0.5 Mg/0.5 Ml Syringe IVP Q2H PRN Pain 8 to 10 Lactated Ringer's 1,000 mls @ 75 mls/hr 12/21/24 15:00 12/22/24 14:30 Lr IV 0 mls/hr .[id number] OLI Infusion Acetaminophen 1,000 mg in 100 mls @ 400 mls/hr 12/21/24 18:00 12/22/24 12:54 Acetaminophen IV Infused Q6HR OLI Infusion Metronidazole 500 mg in 100 mls @ 100 mls/hr 12/21/24 21:00 12/22/24 14:30 Flagyl 500 Mg/100 Ml IV 100 mls/hr Q8H OLI Administration Ciprofloxacin 400 mg in 200 mls @ 200 mls/hr 12/22/24 00:00 12/22/24 14:20 Cipro 400 Mg/200 Ml IV Infused Q12H OLI Infusion Metoprolol Tartrate 5 mg 12/21/24 14:42 12/22/24 14:47 Metoprolol 5 Mg/5 Ml Vial IVP 5 mg Q6H PRN Administration Tachycardia Ondansetron HCl 4 mg 12/21/24 14:34 12/22/24 14:30 Ondansetron Odt 4 Mg Tablet TL 4 mg Q6HR PRN Administration Nausea / Vomiting Ondansetron HCl 4 mg 12/21/24 14:34 Ondansetron 4 Mg/2 Ml Vial IVP Q6HR PRN Nausea / Vomiting Prochlorperazine Edisylate 10 mg 12/21/24 14:34 12/21/24 21:35 Prochlorperazine 10 Mg/2 Ml Vial IVP 10 mg Q6HR PRN Administration Nausea / Vomiting Sodium Chloride 10 ml 12/21/24 14:34 Sodium Chloride Flush 0.9% 10 Ml Syringe IVP PRN PRN NEEDED PER PROVIDER ORDERS Sodium Chloride 10 ml 12/21/24 17:00 12/22/24 08:58 Sodium Chloride Flush 0.9% 10 Ml Syringe IVP Not Given 0100,0900,1700 [facility] Objective Vital Signs/Intake & Output Reviewed Vital Signs: Yes Vital Signs: Vital Signs x48h Temp Pulse Pulse Resp BP BP BP 12/22/24 14:53 86 159/82 H 12/22/24 14:47 92 170/83 H 12/22/24 14:45 92 170/83 H 12/22/24 12:28 36.6 C 95 18 159/70 H 12/22/24 08:10 36.4 C L 82 18 115/72 Pulse Ox 12/22/24 14:53 12/22/24 14:47 12/22/24 14:45 12/22/24 12:28 95 12/22/24 08:10 98 Intake & Output: Intake & Output 12/19/24 12/20/24 12/21/24 12/22/24 23:59 23:59 23:59 23:59 Intake Total 3400 / 3400 1925 / 1926 Balance 3400 / 3400 1925 / 192 Weight (kg) 71.5 kg Objective General Appearance: positive No acute distress and Alert Eyes Bilateral: positive PERRL and EOMI Respiratory: positive No respiratory distress Abdomen: positive Other (minimal distension) Neurologic/Psychiatric: positive Oriented x3 and Mood/affect nml Lab Results 12/22/24 05:27 12/22/24 05:27 Other Labs: Lab Results x24hrs 12/22/24 Range/Units 05:27 WBC 14.1 H (4.8-10.8) x10^3/uL RBC 3.94 L (4.20-5.40) 10^6/uL Hgb 11.7 L (12.0-16.0) g/dL Hct 36.2 L (37.0-47.0) % MCV 91.9 (81.0-99.0) fL MCH 29.7 (27.0-31.0) pg MCHC 32.3 (32.0-36.0) g/dL RDW 13.2 (12.0-15.0) % Plt Count 411 (130-450) 10^3/uL MPV 8.5 (7.9-10.8) fL Neut # (Auto) 10.8 H (1.5-6.6) 10^3/uL Lymph # (Auto) 1.8 (1.5-3.5) 10^3/uL [place] # (Auto) 1.0 (0.0-1.0) 10^3/uL Eos # (Auto) 0.3 (0.0-0.7) 10^3/uL Baso # (Auto) 0.1 (0.0-0.1) 10^3/uL Absolute Nucleated RBC 0.00 x10^3/uL Nucleated RBC % 0.0 /100WBC Sodium 139 (135-145) mmol/L Potassium 3.5 (3.5-4.5) mmol/L Chloride 107 (101-111) mmol/L Carbon Dioxide 25 (21-32) mmol/L Anion Gap 7.0 (6-13) BUN 16 (6-20) mg/dL Creatinine 1.1 (0.6-1.3) mg/dL Estimated GFR (MDRD) 49 L (>89) Glucose 95 (74-104) mg/dL Calcium 8.6 (8.5-10.3) mg/dL Diagnostic Imaging Diagnostic Imaging Results: positive Read independently Assessment/Plan Problem List (1) Diverticulitis large intestine: Impression: much improved. if no nausea and minimal tenderness and distension plan clears tomorrow. if not improving daily plan ct scan in a few days with oral contrast to evaluate for possible abscess
[2024-12-22] MEDS: ALBUTEROL NEB 2.5 MG/3 ML INH PRN (18:05)
[2024-12-23] MEDS: ONDANSETRON 4 MG/2 ML VIAL IVP PRN (02:29)
[2024-12-23] MEDS: METOPROLOL TARTRATE 25 MG TABLET PO SCH (11:59)
--- NOTE | 2024-12-23 13:14 | PROVIDER PROGRESS NOTE ---
Subjective Subjective Subjective: mildly improved. did have n/v early am. feeling better. she is having small bms and passing small amounts gas. mild distension. not have much pain or tenderness Current Medications Current Medications Current Medications: Current Medications Generic Name Dose Route Start Last Admin Trade Name Freq PRN Reason Stop Dose Admin Albuterol 2.5 mg 12/22/24 17:24 12/22/24 18:05 Albuterol Neb 2.5 Mg/3 Ml INH 2.5 mg RTQ4H PRN Administration Wheezing Hydromorphone HCl 0.5 mg 12/21/24 14:34 Hydromorphone 0.5 Mg/0.5 Ml Syringe IVP Q2H PRN Pain 8 to 10 Lactated Ringer's 1,000 mls @ 75 mls/hr 12/21/24 15:00 12/23/24 07:45 Lr IV 75 mls/hr .[id number] OLI Administration Acetaminophen 1,000 mg in 100 mls @ 400 mls/hr 12/21/24 18:00 12/23/24 11:58 Acetaminophen IV 400 mls/hr Q6HR OLI Administration Metronidazole 500 mg in 100 mls @ 100 mls/hr 12/21/24 21:00 12/23/24 06:28 Flagyl 500 Mg/100 Ml IV Infused Q8H OLI Infusion Ciprofloxacin 400 mg in 200 mls @ 200 mls/hr 12/22/24 00:00 12/23/24 11:59 Cipro 400 Mg/200 Ml IV 200 mls/hr Q12H OLI Administration Losartan Potassium 25 mg 12/24/24 09:00 Losartan 50 Mg Tablet PO DAILY OLI Metoprolol Tartrate 5 mg 12/21/24 14:42 12/23/24 01:01 Metoprolol 5 Mg/5 Ml Vial IVP 5 mg Q6H PRN Administration Tachycardia Metoprolol Tartrate 25 mg 12/23/24 11:00 12/23/24 11:59 Metoprolol Tartrate 25 Mg Tablet PO 25 mg BID OLI Administration Ondansetron HCl 4 mg 12/21/24 14:34 12/22/24 21:06 Ondansetron Odt 4 Mg Tablet TL 4 mg Q6HR PRN Administration Nausea / Vomiting Ondansetron HCl 4 mg 12/21/24 14:34 12/23/24 02:29 Ondansetron 4 Mg/2 Ml Vial IVP 4 mg Q6HR PRN Administration Nausea / Vomiting Prochlorperazine Edisylate 10 mg 12/21/24 14:34 12/23/24 05:12 Prochlorperazine 10 Mg/2 Ml Vial IVP 10 mg Q6HR PRN Administration Nausea / Vomiting Sodium Chloride 10 ml 12/21/24 14:34 Sodium Chloride Flush 0.9% 10 Ml Syringe IVP PRN PRN NEEDED PER PROVIDER ORDERS Sodium Chloride 10 ml 12/21/24 17:00 12/23/24 09:55 Sodium Chloride Flush 0.9% 10 Ml Syringe IVP Not Given 0100,0900,1700 [facility] Trazodone HCl 50 mg 12/23/24 21:00 Trazodone 50 Mg Tablet PO QPM [facility] Objective Vital Signs/Intake & Output Reviewed Vital Signs: Yes Vital Signs: Vital Signs x48h Temp Pulse Pulse Resp BP BP Pulse Ox 12/23/24 11:59 108 H 177/98 H 12/23/24 07:41 36.6 C 111 H 20 167/80 H 96 Intake & Output: Intake & Output 12/20/24 12/21/24 12/22/24 12/23/24 23:59 23:59 23:59 23:59 Intake Total 3400 / 3400 2226 / 2226 1500 / 1500 Output Total 400 / 400 Balance 3400 / 3400 1826 / 1826 1500 / 1500 Weight (kg) 71.5 kg Objective General Appearance: positive No acute distress and Alert Respiratory: positive No respiratory distress Abdomen: positive Other (mild distension. minimal llq tenderness) Neurologic/Psychiatric: positive Oriented x3 Lab Results 12/22/24 05:27 12/22/24 05:27 Diagnostic Imaging Diagnostic Imaging Results: positive Read independently Diagnostic Imaging Comments: significant diverticulosis without much inflammation of the colon. likely 5 cm abscess creating adhesions and partial small bowel obstruction Assessment/Plan Problem List (1) Diverticulitis large intestine: Impression: mildly improved. minimal tenderness and minimal distension. likely 5 cm abscess creating adhesions and partial sbo. minimal inflammation of the colon however significant diverticulosis present. plan restart oral meds. clears as tolerated. check labs tomorrow. if not improving perhaps wednesday repeat ct scan with oral contrast to better clarify if an abscess is present vs small bowel. we discussed if she does have an abscess that is not improving drainage might be difficult and surgery could become necessary.
[2024-12-23] MEDS: D5.45NS W/20 MEQ KCL 1,000 ML IV SCH (16:24)
[2024-12-23] MEDS ORDERED: ACETAMINOPHEN 500 MG TABLET PO PRN (19:57)
[2024-12-23] MEDS: traZODone 50 MG TABLET PO SCH (20:47)
[2024-12-23] MEDS: HEPARIN 5,000 UNIT/ML VIAL SUBQ SCH (20:47)
[2024-12-23] MEDS: SODIUM CHLORIDE FLUSH 0.9% 10 ML SYRINGE IVP PRN (20:58)
[2024-12-24 04:46] LABS: HCT - HEMATOCRIT 35.3 % (37.0-47.0); HGB - HEMOGLOBIN 11.5 g/dL (12.0-16.0); MEAN CORPUSCULAR HEMOGLOBIN 29.9 pg (27.0-31.0); MEAN CORPUSCULAR HGB CONC 32.6 g/dL (32.0-36.0); MEAN CORPUSCULAR VOLUME 91.7 fL (81.0-99.0); MEAN PLATELET VOLUME 8.2 fL (7.9-10.8); RED BLOOD COUNT 3.85 10^6/uL (4.20-5.40); RED CELL DISTRIBUTION WIDTH 13.2 % (12.0-15.0); WHITE BLOOD COUNT 12.2 x10^3/uL (4.8-10.8)
[2024-12-24 04:56] LABS: CALCIUM 8.3 mg/dL (8.5-10.3); CREATININE 0.8 mg/dL (0.6-1.3); POTASSIUM 3.6 mmol/L (3.5-4.5)
[2024-12-24] MEDS: LOSARTAN 50 MG TABLET PO SCH (08:15)
[2024-12-24] MEDS: BENZOCAINE/MENTHOL LOZENGE MM PRN (10:05)
--- NOTE | 2024-12-24 15:04 | PROVIDER PROGRESS NOTE ---
Subjective Subjective Pt reports feeling: Improved Subjective: feeling much better today. no nausea except when antibiotic was given. passing gas. minimal to no discomfort. Current Medications Current Medications Current Medications: Current Medications Generic Name Dose Route Start Last Admin Trade Name Freq PRN Reason Stop Dose Admin Acetaminophen 500 mg 12/23/24 19:57 Acetaminophen 500 Mg Tablet PO Q4HR PRN Pain or Fever > 38C (100.4F) Albuterol 2.5 mg 12/22/24 17:24 12/22/24 18:05 Albuterol Neb 2.5 Mg/3 Ml INH 2.5 mg RTQ4H PRN Administration Wheezing Heparin Sodium (Porcine) 5,000 unit 12/23/24 21:00 12/24/24 08:14 Heparin 5,000 Unit/Ml Vial SUBQ 5,000 unit BID OLI Administration Hydromorphone HCl 0.5 mg 12/21/24 14:34 Hydromorphone 0.5 Mg/0.5 Ml Syringe IVP Q2H PRN Pain 8 to 10 Potassium Chloride/Dextrose/Sod Cl 1,000 mls @ 125 mls/hr 12/23/24 16:00 12/24/24 07:45 D5.45ns W/20 Meq Kcl IV 125 mls/hr .Q8H OLI Infusion Piperacillin Sod/Tazobactam 100 mls @ 200 mls/hr 12/24/24 15:00 Sod 3.375 gm/ Sodium Chloride IV Q6H OLI Losartan Potassium 25 mg 12/24/24 09:00 12/24/24 08:15 Losartan 50 Mg Tablet PO 25 mg DAILY OLI Administration Metoprolol Tartrate 5 mg 12/21/24 14:42 12/23/24 01:01 Metoprolol 5 Mg/5 Ml Vial IVP 5 mg Q6H PRN Administration Tachycardia Metoprolol Tartrate 25 mg 12/23/24 11:00 12/24/24 08:14 Metoprolol Tartrate 25 Mg Tablet PO 25 mg BID OLI Administration Ondansetron HCl 4 mg 12/21/24 14:34 12/22/24 21:06 Ondansetron Odt 4 Mg Tablet TL 4 mg Q6HR PRN Administration Nausea / Vomiting Ondansetron HCl 4 mg 12/21/24 14:34 12/23/24 15:45 Ondansetron 4 Mg/2 Ml Vial IVP 4 mg Q6HR PRN Administration Nausea / Vomiting Prochlorperazine Edisylate 10 mg 12/21/24 14:34 12/24/24 12:35 Prochlorperazine 10 Mg/2 Ml Vial IVP 10 mg Q6HR PRN Administration Nausea / Vomiting Sodium Chloride 10 ml 12/21/24 14:34 12/24/24 05:34 Sodium Chloride Flush 0.9% 10 Ml Syringe IVP 10 ml PRN PRN Administration NEEDED PER PROVIDER ORDERS Sodium Chloride 10 ml 12/21/24 17:00 12/24/24 08:16 Sodium Chloride Flush 0.9% 10 Ml Syringe IVP 10 ml 0100,0900,1700 OLI Administration Throat Lozenges 1 lozenge 12/24/24 09:38 12/24/24 10:05 Benzocaine/Menthol Lozenge MM 1 lozenge Q2HR PRN Administration Throat pain Trazodone HCl 50 mg 12/23/24 21:00 12/23/24 20:47 Trazodone 50 Mg Tablet PO 50 mg QPM OLI Administration Objective Vital Signs/Intake & Output Reviewed Vital Signs: Yes Vital Signs: Vital Signs x48h Temp Pulse Pulse Resp BP BP Pulse Ox 12/24/24 08:14 82 161/73 H 12/24/24 07:36 36.5 C 85 18 161/73 H 97 Intake & Output: Intake & Output 12/21/24 12/22/24 12/23/24 12/24/24 23:59 23:59 23:59 23:59 Intake Total 3400 / 3400 2226 / 2226 3060 / 3060 1989 Output Total 400 / 400 600 / 600 Balance 3400 / 3400 1826 / 1826 2460 / 2460 1989 Weight (kg) 71.5 kg Objective General Appearance: positive No acute distress and Alert Respiratory: positive No respiratory distress Abdomen: positive No distention Neurologic/Psychiatric: positive Oriented x3 and Mood/affect nml Lab Results 12/24/24 04:35 12/24/24 04:35 Other Labs: Lab Results x24hrs 12/24/24 Range/Units 04:35 WBC 12.2 H (4.8-10.8) x10^3/uL RBC 3.85 L (4.20-5.40) 10^6/uL Hgb 11.5 L (12.0-16.0) g/dL Hct 35.3 L (37.0-47.0) % MCV 91.7 (81.0-99.0) fL MCH 29.9 (27.0-31.0) pg MCHC 32.6 (32.0-36.0) g/dL RDW 13.2 (12.0-15.0) % Plt Count 397 (130-450) 10^3/uL MPV 8.2 (7.9-10.8) fL Sodium 138 (135-145) mmol/L Potassium 3.6 (3.5-4.5) mmol/L Chloride 106 (101-111) mmol/L Carbon Dioxide 27 (21-32) mmol/L Anion Gap 5.0 L (6-13) BUN 6 (6-20) mg/dL Creatinine 0.8 (0.6-1.3) mg/dL Estimated GFR (MDRD) 71 L (>89) Glucose 142 H (74-104) mg/dL Calcium 8.3 L (8.5-10.3) mg/dL Assessment/Plan Problem List (1) Diverticulitis large intestine: Impression: slowly improving. wbc down. feeling better. no nausea except when abx infusing.. minimal to no pain. plan change antibiotic due to possible related nausea. clears as tolerated. labs tomorrow. if not continuing to improve consider ct scan with oral contrast tomorrow.
[2024-12-24] MEDS: PIPERACILLIN/TAZOBACTAM 3.375 GM in SODIUM CHLORIDE 0.9% MINIBAG 100 ML IV ONE (16:16)
[2024-12-24] MEDS: PIPERACILLIN/TAZOBACTAM 3.375 GM in SODIUM CHLORIDE 0.9% MINIBAG 100 ML IV SCH (18:55)
[2024-12-25 05:37] LABS: HCT - HEMATOCRIT 34.1 % (37.0-47.0); MEAN CORPUSCULAR HEMOGLOBIN 29.9 pg (27.0-31.0); MEAN CORPUSCULAR HGB CONC 32.3 g/dL (32.0-36.0); MEAN CORPUSCULAR VOLUME 92.7 fL (81.0-99.0); MEAN PLATELET VOLUME 8.2 fL (7.9-10.8); RED BLOOD COUNT 3.68 10^6/uL (4.20-5.40); RED CELL DISTRIBUTION WIDTH 13.3 % (12.0-15.0); WHITE BLOOD COUNT 12.1 x10^3/uL (4.8-10.8)
[2024-12-25 06:03] LABS: CALCIUM 7.9 mg/dL (8.5-10.3); CREATININE 0.8 mg/dL (0.6-1.3); POTASSIUM 3.8 mmol/L (3.5-4.5)
[2024-12-25] MEDS: AMOX/CLAV 875 MG/125 MG TABLET PO SCH (10:57)
[2024-12-25 16:27] VITALS: O2SAT 96
--- NOTE | 2024-12-25 17:10 | PROVIDER PROGRESS NOTE ---
Subjective General Admit Date: 12/22/24 Other Other Information/Narrative: 69F HD5 for diverticulitis, I am assuming her care today. This AM she was reporting feeling considerably better, resolved nausea and tolerance of water and tea, with some hint of appetite returning, and asking to go home. She had been on cip/flag, but transitioned to zosyn because thought was that the abx were contributing to her nausea. WBC has gone 18 --> 14 --> 12 --> 12 today. AF/HDN. Her JAY from admission has resolved. She is still having "involuntary diarrhea". Review of Systems Status of ROS: 10 or more systems reviewed and unremarkable except as noted in history and below Exam Constitutional normal general appearance and no apparent distress Respiratory normal respiratory effort Cardiovascular normal heart rate noted Gastrointestinal abdomen soft to palpation and nondistended minimal lower abdominal ttp, no rebound Extremities normal to inspection Psychiatry mental status grossly normal and oriented x3 Skin skin color normal ABX Reporting Has patient been on IV antibiotics over the past 48 hours?: Yes Impression/Plan Problem List (1) Diverticulitis large intestine: Plan: 69F HD5 for diverticulitis with inflammation about the sigmoid colon but no abscess on admission. She has been clinically improving. Will trial regular diet and PO abx today with follow up WBC tomorrow. Also encouraged to walk. If tolerates regular diet and WBC down tomorrow, will consider discharge with continued course of PO abx. If does not tolerate or clinically worsens, will repeat CT with PO contrast tomorrow to look for drainable abscess. Last colonoscopy >10 yrs ago, she should have follow up colonoscopy in 6-8 weeks. Maurene Winkler DO, FACS General Surgeon, [facility]
[2024-12-25] MEDS ORDERED: oxyCODONE 5 MG TABLET PO PRN (17:12)
[2024-12-25] MEDS ORDERED: traZODone 50 MG TABLET PO SCH (21:00)
[2024-12-26 05:19] LABS: BASOPHILS # (AUTO) 0.1 10^3/uL (0.0-0.1); BASOPHILS % (AUTO) 0.5 %; EOSINOPHILS # (AUTO) 0.2 10^3/uL (0.0-0.7); HCT - HEMATOCRIT 34.8 % (37.0-47.0); LYMPHOCYTES # (AUTO) 2.4 10^3/uL (1.5-3.5); LYMPHOCYTES % (AUTO) 22.4 %; MEAN CORPUSCULAR HEMOGLOBIN 29.6 pg (27.0-31.0); MEAN CORPUSCULAR HGB CONC 31.6 g/dL (32.0-36.0); MEAN CORPUSCULAR VOLUME 93.5 fL (81.0-99.0); MEAN PLATELET VOLUME 8.9 fL (7.9-10.8); MONOCYTES # (AUTO) 0.8 10^3/uL (0.0-1.0); MONOCYTES % (AUTO) 7.7 %; NEUTROPHILS # (AUTO) 7.1 10^3/uL (1.5-6.6); NEUTROPHILS % (AUTO) 65.2 %; PLT - PLATELET COUNT 358 10^3/uL (130-450); RED BLOOD COUNT 3.72 10^6/uL (4.20-5.40); RED CELL DISTRIBUTION WIDTH 13.6 % (12.0-15.0); WHITE BLOOD COUNT 10.9 x10^3/uL (4.8-10.8)
[2024-12-26 08:01] VITALS: TEMP 98.1
[2024-12-26 08:06] VITALS: BP 166/81
--- NOTE | 2024-12-26 08:15 | PROVIDER PROGRESS NOTE ---
Subjective General Admit Date: 12/22/24 Other Other Information/Narrative: Tolerated regular diet yesterday. No nausea and minimal pain - no PRN meds used. Diarrhea [] Switched from zosyn to augmentin, WBC down 12 --> 10 this AM. HDN/AF. Review of Systems Status of ROS: 10 or more systems reviewed and unremarkable except as noted in history and below Exam Constitutional normal general appearance and no apparent distress Respiratory normal respiratory effort Cardiovascular normal heart rate noted Gastrointestinal abdomen soft to palpation and nondistended minimal lower abdominal ttp, no rebound Extremities normal to inspection Psychiatry mental status grossly normal and oriented x3 Skin skin color normal Impression/Plan Problem List (1) Diverticulitis large intestine: Plan: 69F HD5 for diverticulitis with inflammation about the sigmoid colon but no abscess on admission. She has been clinically improving. Will trial regular diet and PO abx today with follow up WBC tomorrow. Also encouraged to walk. If tolerates regular diet and WBC down tomorrow, will consider discharge with continued course of PO abx. If does not tolerate or clinically worsens, will repeat CT with PO contrast tomorrow to look for drainable abscess. Last colonoscopy >10 yrs ago, she should have follow up colonoscopy in 6-8 weeks. Maureen Winkler DO, FACS General Surgeon, [facility]
--- NOTE | 2024-12-26 10:19 | Discharge Summary ---
"Discharge Summary Admit Date: 12/21/24 Discharge Date: 12/26/24 Discharging Provider: Maureen Winkler DO Code Status: Attempt Resuscitation DIAGNOSES Admission Diagnoses: Diverticulitis JAY SBO Hypertension Discharge Diagnoses with Status of Each Condition: Diverticulitis - improved JAY - resolved SBO - resolved Hypertension - chronic baseline comorbidity, unchanged HPI History of Present Illness: This is a 69-year-old female who reports acute onset of left lower quadrant abdominal pain approximately 1 week ago. She has had some right lower quadrant pain as well but definitely more on the left. She describes the pain as sharp in nature. It is worse with palpation and movement. Her pain has increased over the last several days and has been associated with nausea and vomiting for the last 3 days. She has not been able to keep anything significant down, even liquids. She endorses chills over the last 3 days. She had 1 or 2 loose stools in the last week. She denies any blood in her stool. She denies any history of similar symptoms in the past. Her last colonoscopy was greater than 10 years ago and she does know that she has a history of diverticulosis. CONSULTS | PROCEDURES Consultations: none Procedures: none HOSPITAL COURSE Hospital Course: The patient was admitted and placed on IV antibiotics; initial cipro/flagyl was changed to Zosyn due to nausea. Her admission JAY resolved after IVF resuscitation. Her associated small bowel obstruction resolved with a period of NPO followed by slow advancement of her diet. Her WBC downtrended. On HD5 she tolerated a regular diet and transition to oral abx with resolution of her leukocytosis on HD6. Her pain and nausea resolved. Her reactive diarrhea was slowly improving. She was discharged to home on HD6, with plan for outpatient follow up for interval colonoscopy. Her last colonoscopy was >10yrs ago In [place]. This was her first episode of diverticulitis. ALLERGIES Allergies Allergy/AdvReac Type Severity Reaction Status Date / Time No Known Drug Allergies Allergy Verified 10/16/24 07:40 MEDICATIONS Ambulatory Orders Medication Instructions Recorded Confirmed losartan 25 mg tablet 25 mg PO QDAY 10/16/24 12/22/24 metoprolol tartrate 50 mg tablet 50 mg PO QDAY 10/16/24 12/22/24 budesonide-formoterol HFA 160 1 inh inhalation DAILY PRN ASTHMA 12/22/24 12/22/24 mcg-4.5 mcg/actuation aerosol FLARES inhaler (Symbicort) trazodone 50 mg tablet 50 - 100 mg PO QPM 12/22/24 12/22/24 amoxicillin 875 mg-potassium 1 tab PO BID 5 days #10 tabs 12/26/24 clavulanate 125 mg tablet ondansetron 4 mg disintegrating 4 mg translingual Q6HR PRN Nausea 12/26/24 tablet / Vomiting #5 tabs PHYSICAL EXAM AT DISCHARGE General Appearance: positive No acute distress Eyes Bilateral: positive Normal inspection ENT: positive ENT inspection nml Neck: positive Nml inspection Respiratory: positive Chest non-tender and No respiratory distress Cardiovascular: positive Regular rate & rhythm Peripheral Pulses: positive 2+ Abdomen: positive Non-tender and No distention Skin: positive Color nml Extremities: positive Non-tender, Full ROM and Nml appearance Neurologic/Psychiatric: positive Oriented x3 LABS 12/26/24 04:38 12/25/24 05:20 DIAGNOSTIC IMAGING Diagnostic Imaging Results Comments: PT NAME: RUSTY BENNETT MR#: [id number] REG ER/ED AGE: 69 CI DT/TM: 12/21/24 PCP: PEDRO George : 1955 ATT: SEX: F ORD: Gillian Roe PA-C EXAM: [id number] CT/ABPEW ([id number]) ADDENDUM ORIGINAL REPORT PROCEDURE: CT Abdomen/Pelvis W INDICATIONS: left lower abdominal pain, concern for diverticuli CONTRAST: Omni 300 100ml TECHNIQUE: After the administration of intravenous contrast, a CT scan of the abdomen and pelvis was performed. Images were recorded and evaluated at appropriate window settings. Reformats: coronal and sagittal. For radiation dose reduction, the following was used: automated exposure control, adjustment of mA and/or kV according to patient size. COMPARISON: None. FINDINGS: Image quality: Diagnostic. Lower chest: Unremarkable. Liver: No solid mass. Gallbladder: Unremarkable. Biliary tree: No intrahepatic or extrahepatic dilation, accounting for age. Spleen: No splenomegaly. Pancreas: No pancreatic ductal dilation. Adrenals: No adrenal nodule. Kidneys and ureters: No hydronephrosis. No renal cystic lesion which requires follow up. No solid mass. Stomach, bowel and peritoneum: Dilated fluid-filled loops of small bowel measuring 4.3 cm. Transition point with inflammatory change is present in the left of midline lower pelvis seen on series 2 images 97 through 102. There is adjacent inflammatory change of the left colon with diverticula. No abscess. No pathologic free fluid. Lymph nodes: No central or retroperitoneal adenopathy. Vessels: No infrarenal aortic aneurysm. Patent portal vein. PELVIS Reproductive organs: Unremarkable. Bladder: No abnormal wall thickening, accounting for underdistention. Pelvic lymph nodes: No pelvic adenopathy by size criteria. Bones: No aggressive osseous abnormality. Other: No significant ventral or inguinal hernia. IMPRESSION: Partial small bowel obstruction as described above. This may be secondary to inflammatory change produced from left colonic colitis. However, inflammation secondary to transition point of small bowel obstruction with secondary colonic inflammation is suspected. Reviewed by: Esha Tellez MD on 12/21/2024 1:13 PM PST Approved by: Esha Tellez MD on 12/21/2024 1:13 PM PST ADDENDUM #1 The findings were discussed with Dr. Bessie Calle on 12/21/2024. Focal area of fluid within the anterior left quadrant series 2 image 89 was discussed as potential focus of abscess versus bowel. It is difficult to tell on current exam and by mouth contrast would further delineate anatomic structures. Reviewed by: Esha Tellez MD on 12/21/2024 3:06 PM PST Approved by: Esha Tellez MD on 12/21/2024 3:06 PM PST Station ID: [id number] Addendum Stitch Burnisher: [facility] Addendum Reading Radiologist:Esha Tellez MD Addendum Releasing Radiologist:Esha Tellez MD Addendum Released Date Time:12/21/241505 Report 150 PROCEDURE: CT Abdomen/Pelvis W INDICATIONS: left lower abdominal pain, concern for diverticuli CONTRAST: Omni 300 100ml TECHNIQUE: After the administration of intravenous contrast, a CT scan of the abdomen and pelvis was performed. Images were recorded and evaluated at appropriate window settings. Reformats: coronal and sagittal. For radiation dose reduction, the following was used: automated exposure control, adjustment of mA and/or kV according to patient size. COMPARISON: None. FINDINGS: Image quality: Diagnostic. Lower chest: Unremarkable. Liver: No solid mass. Gallbladder: Unremarkable. Biliary tree: No intrahepatic or extrahepatic dilation, accounting for age. Spleen: No splenomegaly. Pancreas: No pancreatic ductal dilation. Adrenals: No adrenal nodule. Kidneys and ureters: No hydronephrosis. No renal cystic lesion which requires follow up. No solid mass. Stomach, bowel and peritoneum: Dilated fluid-filled loops of small bowel measuring 4.3 cm. Transition point with inflammatory change is present in the left of midline lower pelvis seen on series 2 images 97 through 102. There is adjacent inflammatory change of the left colon with diverticula. No abscess. No pathologic free fluid. Lymph nodes: No central or retroperitoneal adenopathy. Vessels: No infrarenal aortic aneurysm. Patent portal vein. PELVIS Reproductive organs: Unremarkable. Bladder: No abnormal wall thickening, accounting for underdistention. Pelvic lymph nodes: No pelvic adenopathy by size criteria. Bones: No aggressive osseous abnormality. Other: No significant ventral or inguinal hernia. IMPRESSION: Partial small bowel obstruction as described above. This may be secondary to inflammatory change produced from left colonic colitis. However, inflammation secondary to transition point of small bowel obstruction with secondary colonic inflammation is suspected. Reviewed by: Esha Tellez MD on 12/21/2024 1:13 PM PST Approved by: Esha Tellez MD on 12/21/2024 1:13 PM [facility] Station ID: [id number] Report Electronically Signed by Esha Tellez MD 12/21/24 1302 12/21/24 1313 cc: PEDRO George; Gillian Roe PA-C FOLLOW UP Follow Up: Dr. Winkler for colonoscopy TIME SPENT Time Spent in Discharge (Minutes): 45 Discharge Plan Discharge Patient Disposition: 01 Home, Self Care Condition: Stable Medically Cleared Date:: 12/26/24 Prescriptions: New ondansetron 4 mg Tablet,Disintegrating 4 mg translingual Q6HR PRN (Reason: Nausea / Vomiting) Qty: 5 0RF amoxicillin-pot clavulanate 875-125 mg Tablet 1 tab PO BID 5 Days Qty: 10 0RF Continued trazodone 50 mg tablet 50 - 100 mg PO QPM budesonide-formoterol [Symbicort] 160-4.5 mcg/actuation HFA aerosol inhaler 1 inh inhalation DAILY PRN (Reason: ASTHMA FLARES) losartan 25 mg tablet 25 mg PO QDAY metoprolol tartrate 50 mg tablet 50 mg PO QDAY Activity Restrictions: No Restrictions Diet: Soft Plan of Treatment: Discharge to home. Continue Antibiotics for 5 days. Follow a soft diet, and slowly return to normal diet as symptoms resolve. Follow up with Dr. Winkler in the outpatient clinic to schedule a colonoscopy for 6-8 weeks from now. Print Language: [place]i Patient Instructions: Diverticulosis Diverticulitis, Diverticulitis Dc Stand Alone Forms: PCP List Follow-up Care: GURMEET GARCIA ARNP [Primary Care Provider] - Maureen Winkler DO [Provider Admit Priv/Credential] -"
== END 2024-12-26 10:59 | disposition home or self-care (01) | DRG 392 ==
LOC: ED 09:52 → MS2 09:52
PROVIDERS: ADMIT Surgery; ATTEND Surgery
DX: R00.0 Tachycardia, unspecified; K56.51 Intestinal adhesions [bands], with partial obstruction; K56.600 Partial intestinal obstruction, unspecified as to cause; N17.9 Acute kidney failure, unspecified; E86.0 Dehydration; K57.32 Diverticulitis of large intestine without perforation or abscess without bleeding; I10 Essential (primary) hypertension